=== PATIENT | female | born 1990 | race Caucasian/White ===

== ENCOUNTER 2021-06-18 05:06 | Emergency (ER) | payer OTHER ==
[2021-06-18 05:42] LABS: BASOPHILS % (AUTO) 0.6 %; EOSINOPHILS # (AUTO) 0.1 10^3/uL (0.0-0.7); EOSINOPHILS % (AUTO) 1.3 %; HCT - HEMATOCRIT 43.7 % (37.0-47.0); HGB - HEMOGLOBIN 14.6 g/dL (12.0-16.0); LYMPHOCYTES # (AUTO) 1.5 10^3/uL (1.5-3.5); LYMPHOCYTES % (AUTO) 28.1 %; MEAN CORPUSCULAR HEMOGLOBIN 30.7 pg (27.0-31.0); MEAN CORPUSCULAR HGB CONC 33.4 g/dL (32.0-36.0); MEAN CORPUSCULAR VOLUME 91.8 fL (81.0-99.0); MEAN PLATELET VOLUME 9.8 fL (7.9-10.8); MONOCYTES # (AUTO) 0.9 10^3/uL (0.0-1.0); MONOCYTES % (AUTO) 17.6 %; NEUTROPHILS # (AUTO) 2.7 10^3/uL (1.5-6.6); NEUTROPHILS % (AUTO) 51.8 %; PLT - PLATELET COUNT 332 10^3/uL (130-450); RED BLOOD COUNT 4.76 10^6/uL (4.20-5.40); RED CELL DISTRIBUTION WIDTH 11.9 % (12.0-15.0); WHITE BLOOD COUNT 5.2 x10^3/uL (4.8-10.8)
[2021-06-18] MEDS ORDERED: SODIUM CHLORIDE 0.9% 1,000 ML IV STA (05:42)
[2021-06-18] MEDS ORDERED: ONDANSETRON 4 MG/2 ML VIAL IVP STA (05:42)
--- NOTE | 2021-06-18 05:45 | ED Physician Documentation ---
PD HPI NVD - Stated complaint Stated Complaint: N/V/D, ABD PX - Chief complaint Chief Complaint: Abd Pain - History obtained from History obtained from: Patient - History of Present Illness Timing - onset: How many days ago (2) Timing - duration: Days (2) Timing - details: Abrupt onset, Still present Associated symptoms: Abdominal pain, Dizzy, Near syncope / syncope Contributing factors: Travel. No: Sick contact, Bad food, Recent antibiotics, Alcohol use, Anticoagulated, Diabetes Improved by: Laying still, Vomiting, BM Worsened by: Eating Similar symptoms before: Diagnosis (food poisoning) Recently seen: Not recently seen - Additonal information Additional information: Previously well 30-year-old female is visiting the [place] for the holidays and she has developed some nausea vomiting and diarrhea accompanied by some periodic sharp cramping abdominal pain. She has had symptoms for about 2 days now and anytime that she drinks some water within a short period later she will developed abdominal pain and then developed diarrhea. She has had multiple episodes daily. She feels extremely dehydrated. She does not feel that this is improving. Review of Systems Constitutional: denies: Fever Eyes: denies: Decreased vision Ears: denies: Ear pain Nose: denies: Congestion Throat: denies: Sore throat Cardiac: denies: Chest pain / pressure, Palpitations Respiratory: denies: Dyspnea, Cough GI: reports: Abdominal Pain, Nausea, Vomiting, Diarrhea : denies: Dysuria, Frequency PD PAST MEDICAL HISTORY - Present Medications Home Medications: Ambulatory Orders Medication Instructions Recorded Confirmed Bcp 06/18/21 Promethazine [Phenergan] 25 mg PO Q6H PRN #10 tab 06/18/21 Propranolol HCl 20 mg PO BID 06/18/21 06/18/21 Spironolactone [Aldactone] 50 mg PO BID 06/18/21 06/18/21 - Allergies Allergies/Adverse Reactions: Allergies Allergy/AdvReac Type Severity Reaction Status Date / Time hydrocodone Allergy Respiratory Verified 06/18/21 05:21 oxycodone Allergy Rash Verified 06/18/21 05:21 procaine [From Novocain] Allergy Respiratory Verified 06/18/21 05:21 PD ED PE NORMAL - Vitals Vital signs reviewed: Yes (hypertensive ) - General General: Alert and oriented X 3, No acute distress, Well developed/nourished - HEENT HEENT: Atraumatic, PERRL, EOMI - Neck Neck: Supple, no meningeal sign, No bony TTP - Cardiac Cardiac: No murmur, Other (heart rate is 100 sitting up ) - Respiratory Respiratory: No respiratory distress, Clear bilaterally - Abdomen Abdomen: Normal bowel sounds, Soft, Non distended, No organomegaly, Other (minimal epigastric tenderness ) - Back Back: No CVA TTP, No spinal TTP - Derm Derm: Normal color, Warm and dry, No rash - Extremities Extremities: No deformity, No edema - Neuro Neuro: Alert and oriented X 3, wafer substrate tester 2-12 intact, No motor deficit, No sensory deficit, Normal speech Eye Opening: Spontaneous Motor: Obeys Commands Verbal: Oriented GCS Score: 15 - Psych Psych: Normal mood, Normal affect Results - Vitals Vitals: Vital Signs - 24 hr 06/18/21 06/18/21 05:14 06:45 Temperature 36.4 C L Heart Rate 74 65 Respiratory 18 16 Rate Blood Pressure 127/91 H 121/66 O2 Saturation 97 100 Oxygen O2 Source Room air - Labs Labs: Laboratory Tests 06/18/21 06/18/21 06/18/21 05:25 05:35 05:35 WBC 5.2 RBC 4.76 Hgb 14.6 Hct 43.7 MCV 91.8 MCH 30.7 MCHC 33.4 RDW 11.9 L Plt Count 332 MPV 9.8 Neut # (Auto) 2.7 Lymph # (Auto) 1.5 Jewell # (Auto) 0.9 Eos # (Auto) 0.1 Baso # (Auto) 0.0 Absolute Nucleated RBC 0.00 Nucleated RBC % 0.0 Sodium 134 L Potassium 3.4 L Chloride 103 Carbon Dioxide 22 Anion Gap 9.0 BUN 8 Creatinine 0.7 Estimated GFR (MDRD) 98 Glucose 114 H Calcium 8.5 Total Bilirubin 0.4 AST 34 ALT 50 Alkaline Phosphatase 49 Total Protein 7.2 Albumin 4.0 Globulin 3.2 Albumin/Globulin Ratio 1.3 Lipase 37 Urine Color YELLOW Urine Clarity CLEAR Urine pH 6.0 Ur Specific Malone 1.020 Urine Protein NEGATIVE Urine Glucose (UA) NEGATIVE Urine Ketones TRACE Urine Occult Blood MODERATE H Urine Nitrite NEGATIVE Urine Bilirubin NEGATIVE Urine Urobilinogen 0.2 (NORMAL) Ur Leukocyte Esterase NEGATIVE Urine RBC 6-10 H Urine WBC 0-3 Ur Squamous Epith Cells MANY Squamous H Urine Bacteria Rare Ur Microscopic Review INDICATED Urine Culture Comments NOT INDICATED Urine HCG, Qual NEGATIVE PD MEDICAL DECISION MAKING - ED course Complexity details: reviewed results, re-evaluated patient, considered differential, d/w patient ED course: 30-year-old female with 3 days of gastroenteritis with vomiting and diarrhea is dehydrated and she is administered intravenous saline as well as Zofran. She has very little effect for the nausea with this and she does continue to have some diarrhea. I have encouraged her use some Imodium and we will prescribe some Phenergan for her. Departure - Departure Disposition: Home, Self Care Clinical Impression: Gastroenteritis Instructions: ED Gastroenteritis Viral Follow-Up: Your, doctor [Other] Prescriptions: Promethazine [Phenergan] 25 mg PO Q6H PRN #10 tab PRN Reason: Nausea / Vomiting Comments: Sabrina it does appear that you have gastroenteritis and the expectation is that this is a self resolving process. Usually within a 5-day period of time. Dehydration is the main complication and the recommendation is to use the Phenergan as needed for nausea and to use Imodium as directed for control of the diarrhea. Frequent sips of fluids with sugar are recommended for hydration. Your prescription for Phenergan has been E scribed to [facility] in [place].
[2021-06-18 05:52] LABS: ALBUMIN/GLOBULIN RATIO 1.3 (1.0-2.2); BILIRUBIN,TOTAL 0.4 mg/dL (0.2-1.0); CALCIUM 8.5 mg/dL (8.5-10.3); CREATININE 0.7 mg/dL (0.4-1.0); POTASSIUM 3.4 mmol/L (3.5-5.0); TOTAL PROTEIN 7.2 g/dL (6.7-8.2)
[2021-06-18 05:53] LABS: BILIRUBIN,URINE NEGATIVE (NEGATIVE); GLUCOSE, URINE (UA) NEGATIVE (NEGATIVE); KETONES,URINE (UA) TRACE mg/dL (NEGATIVE); LEUKOCYTE ESTERASE, URINE NEGATIVE (NEGATIVE); NITRITE,URINE NEGATIVE (NEGATIVE); OCCULT BLOOD,URINE MODERATE (NEGATIVE); PROTEIN,URINE NEGATIVE (NEGATIVE); UROBILINOGEN,URINE 0.2 (NORMAL) E.U./dL (NORMAL)
[2021-06-18 05:54] LABS: CLARITY,URINE CLEAR (CLEAR); HCG UR QUAL NEGATIVE
[2021-06-18 05:59] LABS: BACTERIA,URINE Rare /HPF (None Seen); SQUAMOUS EPITHELIAL CELL,UR MANY Squamous (<= Few); WBC,URINE 0-3 /HPF (0-5)
[2021-06-18 06:53] VITALS: BP 121/66
[2021-06-18] MEDS ORDERED: MAG HYDROX/AL HYDROX/SIMETH 30 ML UDC PO STA (07:15)
[2021-06-18] MEDS ORDERED: LIDOCAINE VISCOUS 2% 15 ML UDC MM STA (07:15)
== END 2021-06-18 09:15 | disposition home or self-care (01) ==
LOC: ED 05:06
DX: K52.9 Noninfective gastroenteritis and colitis, unspecified (principal); E86.0 Dehydration
CPT/HCPCS: 36415; 80053; 81001; 81025; 83690; 85025; 96361; 96374; 99283; A9270; 81003; 87086